=== PATIENT | male | born 1950 | race Caucasian/White ===

== ENCOUNTER 2021-06-13 11:00 | Observation (INO) | payer OTHER ==
[~2021-06-13] VITALS: Ht 182.9 cm; Wt 102.3 kg
[2021-06-13 12:04] LABS: BASOPHILS % (AUTO) 1.1 % (0.0-5.0); EOSINOPHILS % (AUTO) 2.4 % (0.0-8.0); HEMATOCRIT 46.8 % (36-48); LYMPHOCYTES % (AUTO) 23.2 % (21.0-51.0); MEAN CORPUSCULAR HEMOGLOBIN 33.5 pg (27.0-33.0); MEAN CORPUSCULAR HGB CONC 33.8 g/dL (32.0-36.0); MEAN CORPUSCULAR VOLUME 99.4 fL (79-99); MONOCYTES % (AUTO) 6.7 % (3.0-13.0); NEUTROPHILS % (AUTO) 66.1 % (40.0-77.0); PLATELET COUNT (AUTO) 158 K/uL (130-400); RED BLOOD CELL COUNT(AUTO) 4.71 MIL/uL (4.00-5.50); RED CELL DISTRIBUTION WIDTH 13.1 % (11.0-15.5); WHITE BLOOD COUNT (AUTO) 10.2 K/uL (4.8-10.8)
[2021-06-13 12:08] LABS: POTASSIUM 4.7 mmol/L (3.5-5.1)
[2021-06-14 10:30] VITALS: BP 101/69
[2021-06-14] MEDS ORDERED: ROSU10TA28 PO (10:59)
[2021-06-14] MEDS ORDERED: LOSA100T58 PO (10:59)
[2021-06-14] MEDS ORDERED: ALLO300T2 PO (10:59)
[2021-06-14] MEDS ORDERED: NAPR-1023 PO (10:59)
[2021-06-14] MEDS ORDERED: GABA300C PO (10:59)
[2021-06-15] VITALS (26 sets, daily range): BP systolic 131–194; BP diastolic 63–99
[2021-06-15] MEDS ORDERED: CEFAZOLIN SODIUM 1 GM VIAL ONE (06:42)
[2021-06-15] MEDS ORDERED: BUPIVACAINE/EPI/PF 0.25% 30ML VIAL IJ ONE (06:42)
[2021-06-15] MEDS ORDERED: MORPHINE PF 100MG/10ML AMP IV ONE (06:42)
[2021-06-15] MEDS ORDERED: THROMBIN-JMI 20000 UNIT KIT TP ONE (06:43)
[2021-06-15] MEDS ORDERED: LACTATED RINGERS 1000ML 1,000 ML IV ONE (06:51)
[2021-06-15] MEDS ORDERED: SUCCINYLCHOLINE CHLORIDE 20 MG/ML 10 ML VIAL ONE (07:00)
[2021-06-15] MEDS ORDERED: LIDOCAINE PF 100MG/5ML (2%) SYRINGE 5ML ONE (07:00)
[2021-06-15] MEDS ORDERED: ONDANSETRON 4MG INJ ONE (07:01)
[2021-06-15] MEDS ORDERED: DEXAMETHASONE SOD PHOSPHATE 10MG/ML 1ML VIAL ONE ×2 (07:01→07:06)
[2021-06-15] MEDS ORDERED: PROPOFOL 10 MG/ML 20ML VIAL IV ONE (07:01)
[2021-06-15] MEDS ORDERED: ROCURONIUM 10MG/1ML SYR 10 MG/ML ML ONE ×2 (07:01→07:52)
[2021-06-15] MEDS ORDERED: NEOSTIGMINE 5MG/5ML SYR IV ONE (07:01)
[2021-06-15] MEDS ORDERED: MIDAZOLAM HCL 1 MG/ML 2ML VIAL ONE (07:01)
[2021-06-15] MEDS ORDERED: GLYCOPYRROLATE 1 MG/5 ML SYRINGE ONE (07:01)
[2021-06-15] MEDS ORDERED: FENTANYL CITRATE PF 50 MCG/1 ML 2ML VIAL ONE ×2 (07:02→08:19)
[2021-06-15] MEDS ORDERED: EPHEDRINE SULFATE 50 MG/ML AMPULE ONE (07:05)
[2021-06-15] MEDS: CEFAZOLIN SODIUM 1 GM VIAL ONE ×2 (07:10→07:50)
[2021-06-15] MEDS ORDERED: MORPHINE 2 MG SYG IVP PRN (11:30)
[2021-06-15] MEDS ORDERED: PROMETHAZINE HCL 25 MG/ML 1ML AMPULE IM PRN (11:30)
[2021-06-15] MEDS ORDERED: 0.9%NACL 10ML VIAL IVP PRN (11:30)
[2021-06-15] MEDS ORDERED: HYDROCODONE/ACETAMINOPHEN 5/325 MG TAB PO PRN (11:30)
[2021-06-15] MEDS: PHARMACY COMMUNICATION MISC SCH ×3 (11:30→13:30)
[2021-06-15] MEDS ORDERED: NAPROXEN 500 MG TABLET PO PRN (11:30)
[2021-06-15] MEDS: DEXAMETHASONE SOD PHOSPHATE 4 MG/ML 1ML VIAL IVP SCH ×3 (12:00→23:31)
[2021-06-15] MEDS ORDERED: LABETALOL 20MG VIAL IV ONE (12:05)
[2021-06-15] MEDS: LACTATED RINGERS 1000ML 1,000 ML IV SCH ×2 (12:45→23:40)
[2021-06-15] MEDS ORDERED: CEFAZOLIN SODIUM 1 GM VIAL IVP SCH (16:00)
[2021-06-15] MEDS ORDERED: ONDANSETRON 4MG INJ IVP PRN (16:30)
[2021-06-15] MEDS ORDERED: LOSARTAN 100 MG TABLET PO SCH (21:00)
[2021-06-15] MEDS ORDERED: GABAPENTIN 300 MG CAPSULE PO SCH (21:00)
[2021-06-15] MEDS ORDERED: ATORVASTATIN 20 MG TABLET PO SCH (21:00)
[2021-06-16] VITALS: BP 141/68
[2021-06-16 04:48] VITALS: BP 135/77
[2021-06-16] MEDS: DEXAMETHASONE SOD PHOSPHATE 4 MG/ML 1ML VIAL IVP SCH (05:23)
[2021-06-16 07:54] VITALS: BP 132/68
[2021-06-16] MEDS ORDERED: ALLOPURINOL 300 MG TABLET PO SCH (09:00)
== END 2021-06-16 10:42 | disposition home or self-care (01) ==
LOC: EDSTATUS 11:00 → EDSEX 06-15 05:35 → DAHIP 06-15 05:35 → INTOOBSV 06-15 05:35 → OBSVTOIN 06-15 05:35 → 4CH 06-15 13:14
PROVIDERS: ADMIT Neurological Surgery; ATTEND Neurological Surgery
DX: M48.061 Spinal stenosis, lumbar region without neurogenic claudication (principal); Z20.822 Contact with and (suspected) exposure to COVID-19; I10 Essential (primary) hypertension; E78.5 Hyperlipidemia, unspecified; F17.200 Nicotine dependence, unspecified, uncomplicated; Z79.899 Other long term (current) drug therapy
CPT/HCPCS: 36415; 63047; 63048 ×2; 71045; 72020; 80048; 85025; 87635; 96374; 96375; 96376 ×2; A4215; A4216; A4221; A4222; A4223; A4344; A4510; A4600; A4649 ×3; A4663; A6260; G0378 ×23; J0330; J0690 ×3; J1100 ×5; J2001; J2250; J2274; J2405 ×2; J2704; J2710; J3010 ×2; J3490 ×4; J7120 ×3